=== PATIENT | female | born 1975 | race Caucasian/White ===

== ENCOUNTER 2018-12-23 04:10 | Inpatient (IN) | payer OTHER ==
[2018-12-23] VITALS (13 sets, daily range): BP systolic 106–163; BP diastolic 55–94
[~2018-12-23] VITALS: Ht 154.9 cm; Wt 92.5 kg
[2018-12-23 04:31] LABS: ABSOLUTE BASOPHILS 0.2 thou/uL (0.0-0.2); ABSOLUTE EOSINOPHILS 0.4 thou/uL (0.0-0.7); ABSOLUTE LYMPHOCYTES 7.7 thou/uL (0.8-5.3); ABSOLUTE MONOCYTES 1.9 thou/uL (0.0-1.2); ABSOLUTE NEUTROPHILS 7.8 thou/uL (1.6-8.1); BASOPHILS 1.1 %; EOSINOPHILS 2.5 %; HEMOGLOBIN 14.8 gm/dL (12.0-15.0); LYMPHOCYTES 42.6 %; MCH 30.7 pg (26.0-34.0); MCHC 34.3 g/dL (28.0-37.0); MCV 89.5 fL (80.0-100.0); MONOCYTES 10.5 %; MPV 7.9 fl. (7.2-11.1); NUCLEATED RBCS 0 /100WBC; PLATELET COUNT* 509 thou/uL (150-400); POLYS 43.3 %; RDW-CV 13.1 % (10.5-14.5); WBC 18.1 thou/uL (4.0-11.0)
[2018-12-23] MEDS ORDERED: CELEXA40 MG PO (04:34)
[2018-12-23 04:35] LABS: ANION GAP 8 mmol/L (7-16); BUN 9 mg/dL (7-18); CALCIUM 9.4 mg/dL (8.5-10.1); CHLORIDE 101 mmol/L (98-107); CO2 26 mmol/L (21-32); CREATININE 0.7 mg/dL (0.6-1.3); GLUCOSE 123 mg/dL (70-99); POTASSIUM 3.8 mmol/L (3.5-5.1); SODIUM 135 mmol/L (136-145)
[2018-12-23] MEDS ORDERED: NORCO 7.5-3251 EACH PO (04:35)
[2018-12-23] MEDS ORDERED: LEVOTHYROXINE100 MC1 PO (04:36)
[2018-12-23] MEDS ORDERED: AMLODIPINE BESY10 MG PO (04:36)
[2018-12-23 04:40] LABS: INR 0.9; PROTIME 9.6 Seconds (9.20-11.50)
[2018-12-23 04:46] LABS: ALBUMIN 3.7 g/dL (3.4-5.0); ALKALINE PHOSPHATASE 62 U/L (46-116); LIPASE 152 U/L (73-393); NT-PRO BRAIN NAT PEPTIDE 21 pg/mL (<300); SGOT 14 U/L (15-37); SGPT 26 U/L (30-65); TOTAL BILIRUBIN 0.2 mg/dL (<0.1-1.0); TOTAL PROTEIN 7.1 g/dL (6.4-8.2); TROPONIN-I LEVEL <0.06 ng/mL (<0.06)
--- NOTE | 2018-12-23 08:38 | CARD ---
[address] [address] CARDIAC CATH REPORT Name: JUAN OROZCO Stephen Room: [address] IN .R.#: [id number] Admission: 12/23/18 Attend Phys: Chadd Dunbar MD, F Discharge: Date of : 71 Report #: [id number] THIS REPORT FOR: //name// APPROVED REPORT Study performed: 12/23/2018 04:18:10 Patient Details Patient Status: ED Room #: The patient is a 43 year-old female Event Personnel Virgie Holloway, Kristin Mcclendon RN, Michael Jackson (R) Bettina Molina David College Basketball Coach Procedures Performed Art Access - R femoral artery* Left Heart Cath w/or w/o Coronaries [id number] [facility] Place w/wo Plasty Single RCA [id number] Indication Abnormal ECG, Chest pain Risk Factors Hypercholesterolemia, Hypertension, Tobacco History () Admission/Lab Medications/Medications given during procedure Glycoprotein IllbIlla Inhibitors, Platelet Aff. Inhib., Heparin Unfract. Procedure Narrative The patient was brought emergently to the Cardiac Catheterization Laboratory and was prepped and draped in a sterile manner. The right femoral was infiltrated with 2% Lidocaine subcutaneous anesthesia. A 6fr Ultimum Sheath sheath was inserted into the right femoral artery. Coronary angiography was performed using coronary diagnostic catheters. The right coronary system was accessed and visualized with a Diagnostic catheter. The left coronary system was accessed and visualized with a Diagnostic catheter. The left ventricle was accessed and visualized with a Diagnostic catheter. Left ventricular/Aortic Valve gradient assessed via catheter [place] [address] CARDIAC CATH REPORT Name: OROZCOJUAN R Room: [address] IN [facility]#: [id number] Admission: 12/23/18 Attend Phys: Chadd Dunbar MD, F Discharge: Date of : 71 Report #: [id number] ventriculogram was performed in GOMEZ projection. Pre-demployment femoral angiogram was performed . Closure device was deployed with a 6 Fr Angioseal STS 6Fr. The patient tolerated the procedure well and there were no complications associated with the procedure. There was no hematoma. Intraoperative Conscious Sedation Sedation start time: 450 Case end Time: 523 Fentanyl 50 mcg Versed 2 mg Dose: 1039 mGy Contrast Type and Amount: Visipaque 230 ml Coronary Angiography The patient's coronary anatomy is right dominant. Diagnostic Cath Left Main 0% stenosis LAD 90% mid stenosis Circumflex 0% stenosis Right Coronary 80% mid stenosis Left Ventriculography The left ventricle is normal in size with normal contractility. The left ventricular ejection fraction is estimated to be 60-65%. Left ventricular wall motion abnormalities are not present. There is no mitral insufficiency. Hemodynamics The aortic pressure is 131/63 mmHg with a mean of 96 mmHg. The left ventricular pressure is 171/20 mmHg with a mean of mmHg. The left ventricular end diastolic pressure is 30 mmHg. There was no gradient across the aortic valve upon pullback. Pullback from the left ventricle to the aorta revealed no gradient across the aortic valve. PCI Technique Lesion Anticoagulation was achieved with Heparin. bolus of iv aggrastat given Percutaneous coronary intervention was performed on the mid right coronary artery. The lesion stenosis prior to intervention was 80% with RICCO 3 flow. A 6F 3DRC [place] [address] CARDIAC CATH REPORT Name: JUAN OROZCO Room: [address] IN ..#: [id number] Admission: 12/23/18 Attend Phys: Chadd Dunbar MD, F Discharge: Date of : 71 Report #: [id number] used to engage the rca ostium. A BMW 190cm Interventional Guidewire was used to cross the lesion. BALLOON DILATION A Balloon catheter Trek RX 2.5 X 8 was inserted and inflated up to 12.00atm for 16seconds. Repeat angiography revealed the following post-dilatation results: 50% stenosis with small dissection. STENT DEPLOYMENT A drug-eluting stent Xience Kaye 2.5X15mm was inserted and inflated up to 7.00atm for 12seconds. Repeat angiography revealed the following post-stent deployment results: 0% stenosis. Additional Inflation: 8.00atm for 11seconds. Additional Inflation: 12.00atm for 15seconds. additional inflation: 14.00 trisha for 12 seconds Final angiography reveals 0 % stenosis with RICCO 3 flow. Conclusion 1. 90% stenosis noted of the mid lad and 80% stenosis of the mid rca 2. normal LV function 3. successful placement of a single drug eluting stent in the mid rca Recommendations plan return to lad at a later date for stenting of the lad Medications Administered Ticagrelor <ELECTRONICALLY SIGNED> By: Chadd Dunbar MD, [facility] 12/23/1838 Daberyl Dunbar MD, [facility] /INF
--- NOTE | 2018-12-23 09:01 | EKG ---
[place] [address] ELECTROCARDIOGRAM REPORT Name: JUAN OROZCO Room: [address] ADM IN M.R.#: [id number] Admission: 12/23/18 Attend Phys: Chadd Dunbar MD, F Discharge: Date of : 71 Report #: [id number] THIS REPORT FOR: //name// [facility] ED Test Date: 2018-12-23 Test Time: 04:15:15 Pat Name: JUAN OROZCO Department: Room: [facility] Gender: F Painting Machine Operator: Ila VELIZ : 1975 Requested By: Fatoumata Cross Order Number: [id number] MD: Chadd Dunbar Measurements Intervals [place] Rate: 82 P: 79 HI: 171 QRS: 81 QRSD: 90 T: 7 QT: 398 QTc: 465 Interpretive Statements Sinus rhythm Borderline T abnormalities, anterior leads No previous ECG available for comparison Electronically Signed On 12-23-2018 9:01:29 ICT QUALITY ASSURANCE ENGINEER by Chadd Dunbar [email or web address] <ELECTRONICALLY SIGNED> By: Chadd Dunbar MD, [facility] 12/23/18 0901 0415 0415 Chadd Dunbar MD, FACC /EPI
--- NOTE | 2018-12-23 11:45 | EKG ---
[place] [address] ELECTROCARDIOGRAM REPORT Name: DENISSE OROZCOANNRuth Mitchell Room: [address] ADM IN M.R.#: [id number] Admission: 12/23/18 Attend Phys: Chadd Dunbar MD, F Discharge: Date of : 71 Report #: [id number] THIS REPORT FOR: //name// [facility] Test Date: 2018-12-23 Test Time: 10:37:37 Pat Name: JUAN OROZCO Department: Room: [address] Gender: F Estimator And Drafter: YASMANI : 1975 Requested By: Chadd Dunbar Order Number: [id number] Yenny SANDHU: Casa Boo Measurements Intervals [place] Rate: 79 P: 28 MN: 163 QRS: 78 QRSD: 92 T: 66 QT: 387 QTc: 444 Interpretive Statements Sinus rhythm Borderline T abnormalities, anterior leads Compared to ECG 12/23/2018 04:15:15 No significant changes Electronically Signed On 12-23-2018 11:45:21 TAPE RECORDER REPAIRER by Casa Boo [email or web address] <ELECTRONICALLY SIGNED> By: Casa Boo MD, [facility] 12/23/18 1145 1037 1037 Casa Boo MD, FACC /EPI
--- NOTE | 2018-12-23 14:43 | NUR ---
VSS, ASSUMED CARE OF PT THIS AM, ASSESSMENT PERFOREMD AND CHARTED, FALL PRECAUTIONS IN PLACE AND CALL LIGHT IN REACH, PT IS A&O4, UP AD TITA AND STSTES PAIN IN LOWER BACK, PT IS TRACING SR WITH 1DBLK ON MONITOR, PT GOAL IS TO SIT UP IN CHAIR WALK IN ROOM AND HAVE NO POST CATH COMPLICATIONS, WILL FOLLOW WITH PLAN OF CARE.
[2018-12-24] VITALS: BP 107/59
[2018-12-24 04:00] VITALS: BP 139/49
[2018-12-24 05:03] LABS: HEMATOCRIT 40.4 % (37.0-47.0); HEMOGLOBIN 13.6 gm/dL (12.0-15.0); MCH 30.8 pg (26.0-34.0); MCHC 33.6 g/dL (28.0-37.0); MCV 91.5 fL (80.0-100.0); MPV 7.5 fl. (7.2-11.1); RBC 4.42 mil/uL (4.20-5.00); RDW-CV 13.1 % (10.5-14.5); WBC 11.8 thou/uL (4.0-11.0)
[2018-12-24 05:26] LABS: ANION GAP 1 mmol/L (7-16); BUN 8 mg/dL (7-18); CALCIUM 8.4 mg/dL (8.5-10.1); CHLORIDE 99 mmol/L (98-107); CHOLESTEROL 207 mg/dL (<200); CO2 25 mmol/L (21-32); CREATININE 0.9 mg/dL (0.6-1.3); GLUCOSE 103 mg/dL (70-99); HDL CHOLESTEROL 32 mg/dL (>40); LDL CHOLESTEROL 140 mg/dL (<100); POTASSIUM 3.5 mmol/L (3.5-5.1); SODIUM 125 mmol/L (136-145); TC:HDL 6.5 Ratio (Not establshd); TRIGLYCERIDE 176 mg/dL (<150); VLDL 35 mg/dL (<40)
[2018-12-24 05:31] LABS: SERUM ASSESSMENT CLEAR; TROPONIN-I LEVEL 2.44 ng/mL (<0.06)
--- NOTE | 2018-12-24 06:16 | NUR ---
RECEIVED REPORT FROM RECRUITING ASSOCIATE BELINDA AT 1935. PT ARRIVED TO UNIT AT 1999 VIA WHEELCHAIR. PT AAOX4. SPOUSE AT BEDSIDE. MOUNTED POLICE OFFICER IN PLACE, TRACING SINUS RHYTHM. DENIES CHEST PAIN THIS SHIFT. HOURLY ROUNDING COMPLETED. CALL LIGHT WITHIN REACH. VOICED NO CONCERNS THIS SHIFT.
[2018-12-24 08:00] VITALS: BP 117/56
--- NOTE | 2018-12-24 11:19 | NUR ---
RECEIVED REPORT FROM NIGHT NURSE. ASSUMED CARE OF PT AROUND 0730. PT A&O X4, PLEASANT. VSS. COST AND SALES RECORD SUPERVISOR IN PLACE TRACING SR. DENIES CHEST PAIN. AM ASSESSMENT COMPLETED CHARTED. PT UP TO BEDSIDE CHAIR FOR BREAKFAST. TOLERATING DIET. REPORTED BACK AND NECK PAIN - RECEIVED PRN PAIN PILL WITH RELIEF. NO CONCERNS VOICED AT THIS TIME. FALL PRECAUTIONS IN PLACE. CALL LIGHT IS WITHIN REACH. WILL CONTINUE WITH PLAN OF CARE.
[2018-12-24 11:23] VITALS: BP 140/83
--- NOTE | 2018-12-24 12:10 | EKG ---
[place] [address] ELECTROCARDIOGRAM REPORT Name: JUAN OROZCO Room: [address] ADM IN .R.#: [id number] Admission: 12/23/18 Attend Phys: Chadd Dunbar MD, F Discharge: Date of : 71 Report #: [id number] THIS REPORT FOR: //name// [facility] ED Test Date: 2018-12-23 Test Time: 04:16:29 Pat Name: JUAN OROZCO Department: Room: [facility] Gender: F Metallurgical Laboratory Assistant: Ila VELIZ : 1975 Requested By: Fatoumata Cross Order Number: [id number] Yenny MD: Chadd Dunbar Measurements Intervals [place] Rate: 82 P: 74 [place]: 167 QRS: 78 QRSD: 98 T: 2 QT: 405 QTc: 473 Interpretive Statements Sinus rhythm Borderline T abnormalities, inferior leads Electronically Signed On 12-23-2018 9:01:48 WAREHOUSE PICKER by Chadd Dunbar Compared to ECG 12/23/2018 04:15:15 No significant changes Electronically Signed On 12-24-2018 12:10:25 WAREHOUSE PICKER by Chadd Dunbar [email or web address] <ELECTRONICALLY SIGNED> By: Chadd Dunbar MD, [facility] 12/24/18 1210 0416 0416 Chadd Dunbar MD, [facility] /EPI
--- NOTE | 2018-12-24 12:17 | EKG ---
[place] [address] ELECTROCARDIOGRAM REPORT Name: JUAN OROZCO Room: [address] ADM IN .R.#: [id number] Admission: 12/23/18 Attend Phys: Chadd Dunbar MD, F Discharge: Date of : 71 Report #: [id number] THIS REPORT FOR: //name// [facility] Test Date: 2018-12-24 Test Time: 04:30:14 Pat Name: JUAN OROZCO Department: Room: [facility] Gender: F General Office Worker: [facility] : 1975 Requested By: Chadd Dunbar Order Number: [id number] Yenny MD: Chadd Dunbar Measurements Intervals [place] Rate: 79 P: 28 PA: 160 QRS: 69 QRSD: 89 T: 17 QT: 389 QTc: 447 Interpretive Statements Sinus rhythm Compared to ECG 12/23/2018 10:37:37 T-wave abnormality no longer present Electronically Signed On 12-24-2018 12:17:19 FILLING OPERATOR by Chadd Dunbar [email or web address] <ELECTRONICALLY SIGNED> By: Chadd Dunbar MD, [facility] 12/24/18 1217 0430 0430 Chadd Dunbar MD, FACC /EPI
[2018-12-24 16:00] VITALS: BP 118/74
--- NOTE | 2018-12-24 19:25 | NUR ---
NO CHANGES THIS SHIFT. PAIN MANAGED WITH PO PAIN MEDICATION WITH RELIEF. PT ABLE TO REST THIS AFTERNOON. FAMILY AT BEDSIDE. NPO AFTER MIDNIGHT FOR CATH TOMORROW. NO COMPLAINTS AT THIS TIME. CALL LIGHT IS WITHIN REACH.
[2018-12-24 20:00] VITALS: BP 117/61
[2018-12-24 23:09] LABS: GLYCOHEMOGLOBIN (HGB A1C) 5.7 % (4.8-5.6)
[2018-12-25] VITALS (15 sets, daily range): BP systolic 110–144; BP diastolic 59–87
--- NOTE | 2018-12-25 04:18 | NUR ---
ASSUMED CARE OF PT AFTER REPORT AT 1930. PT A&OX4. VSS. PHYSICAL ASSESSMENT COMPLETED AND CHARTED. PT ON RA WITH 99% O2 SAT. PT TRACING SR ON TELE. PT UP ADLIB TO RESTROOM. POST CATH SITE TO RIGHT GROIN C/D/I. NO HEMATOMA. PT C/O OF RIGHT GROIN & CHRONIC BACK PAIN-PAIN MEDS GIVEN PER JAN. REMINDED PT TO BE NPO POST MIDNIGHT FOR SECOND CARDIAC CATH TODAY. COMMUNICATES UNDERSTANDING. PT RESTED WELL ON BED. CALL LIGHT WITHIN REACH. BED IN LOW POSITION.
[2018-12-25] MEDS ORDERED: LEVOTHYROXINE112 MCG PO (09:25)
--- NOTE | 2018-12-25 14:05 | NUR ---
MET WITH PT TO DISCUSS HOME SITUATION/DC PLANNING. PT LIVES WITH SPOUSE AND CHILDREN. SHE IS INDEPENDENT AND ACTIVE. USES NO EQUIPMENT. PLANS TO RETURN HOME AT TOMORROW. PT'S MOTHER AND PT WANTS TO BE DC'D EARLY POSSIBLE TOMORROW FOR . SUPPORT GIVEN NURSING AWARE
--- NOTE | 2018-12-25 15:00 | EKG ---
[place] [address] ELECTROCARDIOGRAM REPORT Name: JUAN OROZCO Room: [address] ADM IN M.R.#: [id number] Admission: 12/23/18 Attend Phys: Chadd Dunbar MD, F Discharge: Date of : 71 Report #: [id number] THIS REPORT FOR: //name// [facility] Test Date: 2018-12-25 Test Time: 12:47:48 Pat Name: JUAN OROZCO Department: Room: [address] Gender: F Automotive Dismantler: : 1975 Requested By: Chadd Dunbar Order Number: [id number] Yenny MD: Chadd Dunbar Measurements Intervals [place] Rate: 69 P: 29 TN: 173 QRS: 52 QRSD: 82 T: 18 QT: 399 QTc: 428 Interpretive Statements Sinus rhythm Compared to ECG 12/24/2018 04:30:14 No significant changes Electronically Signed On 12-25-2018 15:00:14 DIRECTOR PEOPLESOFT by Chadd Dunbar [email or web address] <ELECTRONICALLY SIGNED> By: Chadd Dunbar MD, [facility] 12/25/18 1500 1247 124 Chadd Dunbar MD, FACC /EPI
--- NOTE | 2018-12-25 15:51 | H ---
[address] [address] HISTORY AND PHYSICAL Name: JUAN OROZCO Room: [address] IN M.R.#: [id number] Admission: 12/23/18 Attend Phys: Chadd Dunbar MD, F Discharge: Date of : 71 Report #: [id number] THIS REPORT FOR: //name// CC: Rashi Aguayogo DATE OF SERVICE: 12/23/2018 HISTORY OF PRESENT ILLNESS: The patient is a 43-year-old white female who I was asked to see in the Emergency Room after she complained of chest pain. The patient has no previous history of heart disease. She notes she was doing well until this morning at approximately 4:00 a.m., she woke up with a pain in her chest. She described a sharp pain that went into her back. Her arms seem to burn, she felt diaphoretic and nauseated. She called EMS and was brought here. ECG showed nonspecific ST and T-wave changes. A code STEMI was activated. She denied the pain being related to food. She has had no recent fever or bleeding. She denied any trauma to her chest. There is no rash. She denies exertional dyspnea. She does note occasional flutter in her heart, but no syncope. PAST MEDICAL HISTORY: She has had previous cholecystectomy, bladder surgery, hypertension. MEDICATIONS: Include amlodipine, Synthroid. She uses inhaler, Celexa, hydrocodone for chronic back pain. ALLERGIES: She has no known drug allergies. FAMILY HISTORY: Her father and mother both had stents. SOCIAL HISTORY: She is . She and her live in [place]. She works as a logistics project manager. Smokes a pack of cigarettes a day. No alcohol use. REVIEW OF SYSTEMS: She has had no history of stroke, peptic ulcer disease, liver disease, kidney disease, cancer, psychiatric illness, chronic skin condition. PHYSICAL EXAMINATION: GENERAL: Revealed a young white female lying in bed. She appeared in no distress. VITAL SIGNS: She had a blood pressure of 160/90, pulse 90. HEENT: She is anicteric, conjunctiva pink. Mucous membranes moist. NECK: Veins difficult to assess due to obesity. No carotid bruits heard. CHEST: Clear to auscultation. HEART: [place] [address] HISTORY AND PHYSICAL Name: JUAN OROZCO Room: [address]#: [id number] Admission: 12/23/18 Attend Phys: Chadd Dunbar MD, F Discharge: Date of : 71 Report #: [id number] ABDOMEN: Obese, soft, nontender. EXTREMITIES: Had no edema. Dorsalis pedis pulse 2+ bilaterally. SKIN: Warm, dry. NEUROLOGIC: Nonfocal. DIAGNOSTIC DATA: ECG, sinus rhythm, nonspecific ST and T-wave change. Of note, she had an ECG done by Paramedics, did appear to show ST segment elevation in lead 3. LABORATORY DATA: Pending except white blood cell count is 14.1, hemoglobin 14.8, hematocrit 43. IMPRESSION AND RECOMMENDATIONS: 1. Possible acute coronary syndrome. Recommend urgent cardiac catheterization. 2. Hypertension. The patient is on amlodipine. 3. Chronic back pain. 4. Tobacco abuse. <ELECTRONICALLY SIGNED> By: Chadd Dunbar MD, FACC 12/25/18 1551 0440 0513Daberyl Dunbar MD, FACC /nt
--- NOTE | 2018-12-25 17:46 | CARD ---
[address] [address] CARDIAC CATH REPORT Name: JUAN OROZCO Stephen Room: [address] IN .R.#: [id number] Admission: 12/23/18 Attend Phys: Chadd Dunbar MD, F Discharge: Date of : 71 Report #: [id number] THIS REPORT FOR: //name// ADDENDUM APPROVED REPORT Study performed: 12/25/2018 09:48:09 Patient Details Patient Status: In-Patient Room #: The patient is a 43 year-old female Event Personnel Chadd Dunbar Biophysics Teacher, Jocy Castillo RN RN, Brendon Pike, Michael Jackson ([employer] Brittany RN disc pad grinding machine feeder Performed cath pci Indication Chest pain Risk Factors Arterial Hypertension, Hypercholesterolemia, Tobacco History () Previous Procedures/Diagnoses Previous PCI Admission/Lab Medications/Medications given during procedure Heparin Unfract. Procedure Narrative The patient was brought electively to the Cardiac Catheterization Laboratory and was prepped and draped in a sterile manner. The right wrist was infiltrated with 1% Lidocaine subcutaneous anesthesia. A Slender Glidesheath sheath was inserted into the right radial artery. Coronary angiography was performed using coronary diagnostic catheters. The right coronary system was accessed and visualized with a JR4 5fr catheter. The left coronary system was accessed and visualized with a 6FR XB 3.0 100CM catheter. The left ventricle was accessed and visualized with a PJR4 5fr/PRESSURES [place] [address] CARDIAC CATH REPORT Name: JUAN OROZCO Room: [address] IN .R.#: [id number] Admission: 12/23/18 Attend Phys: Chadd Dunbar MD, F Discharge: Date of : 71 Report #: [id number] ventricular/Aortic Valve gradient assessed via catheter pullback. Closure device was deployed with a 6 Fr Vasc-Band Reg 24cm. The patient tolerated the procedure well and there were no complications associated with the procedure. There was no hematoma. Intraoperative Conscious Sedation Sedation start time: 1056 Case end Time: 1126 Fentanyl 25 mcg Versed 2 mg Fluoro Time: 5.5 minutes Dose: DAP 59501 cGycm2 930 mGy Contrast Type and Amount: Omnipaque 150 ml Coronary Angiography The patient's coronary anatomy is right dominant. Diagnostic Cath Left Main 0% stenosis LAD 90% mid stenosis, 60% distal stenosis Circumflex 0% stenosis Right Coronary stent in mid rca with 0% stenosis Left Ventriculography Left Ventriculography was not performed. Hemodynamics The aortic pressure is 111/65 mmHg with a mean of 84 mmHg. The left ventricular pressure is 111/20 mmHg with a mean of mmHg. The left ventricular end diastolic pressure is 22 mmHg. There was no gradient across the aortic valve upon pullback. Pullback from the left ventricle to the aorta revealed no gradient across the aortic valve. PCI Technique Lesion Anticoagulation was achieved with Heparin. Patient was preloaded with Brillinta. Percutaneous coronary intervention was performed on the mid left anterior descending artery segment. The lesion stenosis prior to intervention was 90% with RICCO 3 flow. A 6FR XB 3.0 100CM Guide Catheter was used to engage the lm ostium. A IG: BMW 190cm Interventional Guidewire was used to cross the [place] [address] CARDIAC CATH REPORT Name: JUAN OROZCO Room: [address] IN ..#: [id number] Admission: 12/23/18 Attend Phys: Chadd Dunbar MD, F Discharge: Date of : 71 Report #: [id number] A Balloon catheter Mini Trek RX 2.0 X 8 was inserted and inflated up to 8.00atm for 13seconds. Repeat angiography revealed the following post-dilatation results: 50% stenosis. Additional Inflation: 10.00atm for 13seconds. STENT DEPLOYMENT A drug-eluting stent Xience Kaye 2.47Y81ve was inserted and inflated up to 8.00atm for 8seconds. Repeat angiography revealed the following post-stent deployment results: 0% stenosis. Additional Inflation: 8.00atm for 7seconds. Additional Inflation: 8.00atm for 9seconds. 12 RACHEAL FOR 16 SEC 15 RACHEAL FOR 17 SEC 16 RACHEAL FOR 14 SEC Final angiography reveals 0 % stenosis with RICCO 3 flow. Conclusion 1. 90% stenosis in mid lad 2. successful placement of a drug eluting stent in the mid lad 3. no restenosis of stent in the mid rca Recommendations Smoking Cessation Cardiac Rehabilitation Referral Aggressive Medical Therapy Medications Administered Ticagrelor <ELECTRONICALLY SIGNED> By: Chadd Dunbar MD, [facility] 12/25/18 1745 44 1745Daberyl Dunbar MD, [facility] /INF
[2018-12-26] VITALS: BP 123/85
[2018-12-26 04:00] VITALS: BP 120/65
--- NOTE | 2018-12-26 05:03 | NUR ---
ASSUMED CARE OF PT AFTER REPORT AT 1930. PT A&OX4. VSS. PHYSICAL ASSESSMENT COMPLETED AND CHARTED. PT ON RA WITH 96% O2 SAT. PT TRACING SR ON TELE. PT UP ADLIB TO RESTROOM. PT C/O OF CHRONIC BACK PAIN-PAIN MEDS GIVEN PER JAN. POST CATH SITE TO RIGHT WRIST & RIGHT GROIN C/D/I. NO BLEEDING OR HEMATOMA NOTED. PT RESTED WELL ON BED. CALL LIGHT WITHIN REACH. BED IN LOW POSITION.
[2018-12-26 05:58] LABS: HEMATOCRIT 38.3 % (37.0-47.0); MCH 31.1 pg (26.0-34.0); MCV 91.4 fL (80.0-100.0); RBC 4.19 mil/uL (4.20-5.00); RDW-CV 12.8 % (10.5-14.5); WBC 12.1 thou/uL (4.0-11.0)
[2018-12-26 06:30] LABS: CALCIUM 8.9 mg/dL (8.5-10.1); CREATININE 0.9 mg/dL (0.6-1.3); POTASSIUM 3.9 mmol/L (3.5-5.1)
[2018-12-26 06:33] LABS: TROPONIN-I LEVEL 1.32 ng/mL (<0.06)
--- NOTE | 2018-12-26 10:43 | NUR ---
ORDERS NOTED FOR DC HOME. PT DENIES NEEDS
[2018-12-26] MEDS ORDERED: CHILDREN'S ASPI81 M1 PO (11:11)
[2018-12-26] MEDS ORDERED: ATORVASTATIN CA40 MG PO (11:12)
[2018-12-26] MEDS ORDERED: METOPROLOL TART25 MG PO (11:14)
[2018-12-26] MEDS ORDERED: BRILINTA90 MG PO (11:16)
[2018-12-26] MEDS ORDERED: TYLENOL325 MG PO (11:17)
[2018-12-26] MEDS ORDERED: NITROGLYCERIN0.4 MG SUBLING (11:18)
--- NOTE | 2018-12-26 15:01 | EKG ---
[place] [address] ELECTROCARDIOGRAM REPORT Name: JUAN OROZCO Room: [address] DIS IN M.R.#: [id number] Admission: 12/23/18 Attend Phys: Chadd Dunbar MD, F Discharge: 12/26/18 Date of : 71 Report #: [id number] THIS REPORT FOR: //name// [facility] Test Date: 2018-12-26 Test Time: 07:54:04 Pat Name: JUAN OROZCO Department: Room: [address] Gender: F Complaint Operator: : 1975 Requested By: Chadd Dunbar Order Number: [id number] Yenny MD: Chadd Dunbar Measurements Intervals [place] Rate: 73 P: 43 [place]: 154 QRS: 61 QRSD: 87 T: 26 QT: 389 QTc: 429 Interpretive Statements Sinus rhythm Compared to ECG 12/25/2018 12:47:48 No significant changes Electronically Signed On 12-26-2018 15:00:42 STRAIGHT LINE PRESS SETTER by Chadd Dunbar [email or web address] <ELECTRONICALLY SIGNED> By: Chadd Dunbar MD, [facility] 12/26/18 1500 0754 0754 Chadd Dunbar MD, FACC /EPI
--- NOTE | 2018-12-26 16:55 | D ---
[address] [address] DISCHARGE SUMMARY Name: JUAN OROZCO Room: [address] M.R.#: [id number] Admission: 12/23/18 Attend Phys: Chadd Dunbar MD, F Discharge: 12/26/18 Date of : 71 Report #: [id number] THIS REPORT FOR: //name// CC: Rashi Adams DATE OF SERVICE: 12/26/2018 DISCHARGE DIAGNOSES: 1. Non-ST segment elevation myocardial infarction. 2. Coronary artery disease. 3. Hypertension. 4. Hyperlipidemia. 5. Tobacco abuse. CONSULTANTS: None. PROCEDURES: 1. Emergent left heart catheterization with placement of a drug-eluting stent in the right coronary artery via the femoral approach. 2. Elective cardiac catheterization with placement of a drug-eluting stent in the LAD via the right radial artery. HISTORY OF PRESENT ILLNESS: The patient is a 43-year-old white female who came to the Emergency Room complaining of chest pain. The patient was doing well until the morning of admission at 4:00 a.m. she woke up with a pain in her chest, went into her back, her arms, seemed to burn, she felt diaphoretic and nauseated. She called paramedics. ECG showed ST segment elevation apparently in lead 3. A code STEMI was activated. I was asked to see her on an emergent basis. On arrival to the Emergency Room, her pain had improved. She denied any recent shortness of breath, bleeding, trauma to her chest or rash. She notes occasional flutter in her chest, but no syncope. PAST MEDICAL HISTORY: She has had previous cholecystectomy, bladder surgery. She has a history of hypertension and hyperlipidemia. MEDICATIONS: Included amlodipine, Lipitor, Synthroid, an inhaler, Celexa, hydrocodone for chronic back pain. ALLERGIES: She has no known drug allergies. SOCIAL HISTORY: She is . She lives in [place] with her . She works as a project account manager. Smokes a pack of cigarettes a day. PHYSICAL EXAMINATION: [place] [address] DISCHARGE SUMMARY Name: JUAN OROZCO Room: [address]#: [id number] Admission: 12/23/18 Attend Phys: Chadd Dunbar MD, F Discharge: 12/26/18 Date of : 71 Report #: [id number] GENERAL: Revealed a young female. VITAL SIGNS: Blood pressure 160/90, pulse is 90. CHEST: Clear to auscultation. CARDIAC: Regular rate and rhythm. ABDOMEN: Soft. EXTREMITIES: No edema. SKIN: Warm and dry. NEUROLOGIC: Nonfocal. LABORATORY DATA: Her ECG done by paramedics did show ST segment elevation in lead 3. However, on arrival to the Emergency Room at [facility], ECG showed only nonspecific ST and T-wave changes. Lab work included hemoglobin of 14.8. HOSPITAL COURSE: Because of the transient ST segment elevation, the patient was taken urgently to cardiac catheterization lab and I performed cardiac catheterization from the right femoral artery. Results showed ejection fraction of 60%. There was an 80% narrowing of the mid right coronary artery that was somewhat eccentric. There was also a 90% discrete stenosis in mid LAD. She was given heparin and Aggrastat. I then placed a single drug-eluting stent in the mid right coronary artery since this is where the transient ST segment elevation was noted. Fortunately, she had no further chest pain, arrhythmias or heart failure. She had no significant hematoma in the groin after an Angio-Seal was placed. She began to ambulate with cardiac rehabilitation. Because of the severe stenosis in mid LAD, I took her back to the cardiac catheterization lab on 12/25/2018. I performed repeat cardiac catheterization from the right radial artery. There was no significant restenosis of the stent in the right coronary artery. I then placed a single drug-eluting stent in the mid LAD. She tolerated this well. The patient was placed on Brilinta. Workup during her hospitalization included a chest x-ray that showed normal heart size and clear lung yoder. Additional lab work included BUN 10, creatinine 0.9, fasting blood sugar 104. Liver function studies were normal. Her peak troponin was 2.44. Cholesterol was 207, triglyceride 176, HDL 32, LDL 140. TSH was 5.4. Glycosylated hemoglobin was 5.7. A followup hemoglobin was 13 and there was no drop in platelet count. The patient was discharged on her home medication that included amlodipine 10 mg a day for hypertension, Celexa 40 mg a day, hydrocodone for chronic back pain, Synthroid for hypothyroidism. She was placed on aspirin 81 mg a day, Brilinta 90 mg twice a day. She was given nitroglycerin to take as needed for chest pain. Because of her coronary artery disease and non-STEMI she was started on metoprolol 25 mg twice a day. She was discharged to return to care of Dr. Coon for routine medical care. She is scheduled to see my nurse practitioner in 1 week. I plan on seeing her in Cardiology Clinic in 2 months. She is felt to have a good prognosis from a cardiac standpoint. I have recommended she not return to work for a week. I did recommend she enroll in cardiac rehabilitation at [facility]. At the time of discharge, there was no significant hematoma in [address] [address] DISCHARGE SUMMARY Name: JUAN OROZCO Room: [address] M.R.#: [id number] Admission: 12/23/18 Attend Phys: Chadd Dunbar MD, F Discharge: 12/26/18 Date of : 71 Report #: [id number] the right groin or right wrist. She was given a prescription for the Brilinta to take 90 mg every 12 hours for at least one year following placement of the stent. <ELECTRONICALLY SIGNED> By: Chadd Dunbar MD, FAC 12/26/18 1655 [id number] [id number] Rashard Dunbar MD, FACC /nt
--- NOTE | 2018-12-26 17:47 | NUR ---
ORDER RECEIVED TO DISCHARGE [facility] HOME TO SELF CARE. MED REC, MEDICATION EDUCATION, STROKE EDUCATION, AND NEED FOR FOLLOW UP APPOINTMETNS COVERED AND STATED UNDERSTOOD BY PATIENT. TELEMRTY AND IV DC'D. HOURLY ROUNDING COMPLETD FOR PATIENT SAFETY. DISCHRAGE TOME OF 11:45. PATINET ESCORTED BY HOSITAL STAFF TO AWAITING CAR WITH SPOUSE PRESENT.
== END 2018-12-26 11:35 | disposition home or self-care (01) | DRG 246 ==
LOC: M.ERS 04:10 → M.2W 04:33 → M.TBA-ER 04:33 → M.ICU 04:33 → M.TBA-CV 05:49 → M.ICU 06:07 → M.2W 20:24
PROVIDERS: Internal Medicine; Personal Emergency Response Attendant; ADMIT Internal Medicine Cardiovascular Disease
DX: I21.4 Non-ST elevation (NSTEMI) myocardial infarction (principal); I50.31 Acute diastolic (congestive) heart failure; I11.0 Hypertensive heart disease with heart failure; E11.9 Type 2 diabetes mellitus without complications; I25.10 Atherosclerotic heart disease of native coronary artery without angina pectoris; E78.5 Hyperlipidemia, unspecified; F17.210 Nicotine dependence, cigarettes, uncomplicated; F41.1 Generalized anxiety disorder; F32.9 Major depressive disorder, single episode, unspecified; M54.9 Dorsalgia, unspecified; G89.29 Other chronic pain; E03.9 Hypothyroidism, unspecified; E66.9 Obesity, unspecified; Z68.38 Body mass index [BMI] 38.0-38.9, adult; Z71.6 Tobacco abuse counseling; Z90.49 Acquired absence of other specified parts of digestive tract; Z79.899 Other long term (current) drug therapy; Z82.49 Family history of ischemic heart disease and other diseases of the circulatory system

== ENCOUNTER → 2019-01-24 | Outpatient (CLI) | payer OTHER ==
[~2019-01-24] MED LIST: AMLODIPINE BESY10 MG PO; ATORVASTATIN CA40 MG PO; BRILINTA90 MG PO; CELEXA40 MG PO; CHILDREN'S ASPI81 M1 PO; LEVOTHYROXINE100 MC1 PO; LEVOTHYROXINE112 MCG PO; METOPROLOL TART25 MG PO; NITROGLYCERIN0.4 MG SUBLING; NORCO 7.5-3251 EACH PO; TYLENOL325 MG PO
--- NOTE | 2019-01-24 16:36 | 2DMMODE ---
[place] [address] 2 D/M-MODE ECHOCARDIOGRAM Name: JUAN OROZCO Room: [facility]#: [id number] Admission: 01/24/19 Attend Phys: Padmini Guevara Discharge: Date of : 71 Date of Service: 01/24/19 1636 Report #: [id number] THIS REPORT FOR: //name// APPROVED REPORT Study performed: 01/24/2019 14:32:04 EXAM: Comprehensive 2D, Doppler, and color-flow Echocardiogram Patient Location: Out-Patient BSA: 1.89 HR: 78 bpm BP: 118/58 mmHg Other Information Study Quality: Good Indications CAD 2D Dimensions IVSd: 10.31 (7-11mm) LVOT Diam: 20.30 (18-24mm) LVDd: 46.79 mm PWd: 9.68 (7-11mm) Ascending Ao: 25.29 (22-36mm) LVDs: 34.15 (25-40mm) Aortic Root: 21.21 mm Volumes Left Atrial Volume (Systole) LA ESV Index: 19.00 mL/m2 Aortic Valve AoV Peak Shawn.: 1.48 m/s AO Peak Gr.: 8.75 mmHg LVOT Max P.54 mmHg AO Mean Gr.: 4.86 mmHg LVOT Mean P.67 mmHg LVOT Max V: 0.94 m/s AO V2 VTI: 29.37 cm LVOT Mean V: 0.59 m/s KAROLINE (VTI): 2.11 cm2 LVOT V1 VTI: 19.14 cm Mitral Valve E/A Ratio: 1.15 MV Decel. Time: 229.99 ms MV E Max Shawn.: 1.19 m/s MV PHT: 66.70 ms MVA (PHT): 3.30 [place]2 [place] [address] 2 D/M-MODE ECHOCARDIOGRAM Name: JUAN OROZCO Room: [facility]#: [id number] Admission: 01/24/19 Attend Phys: Padmini Guevara Discharge: Date of : 71 Date of Service: 01/24/19 1636 Report #: [id number] TDI E/Lateral E': 9.92 E/Medial E': 13.22 Medial E' Shawn.: 0.09 m/s Lateral E' Shawn.: 0.12 m/s Pulmonary Valve PV Peak Shawn.: 0.81 m/s PV Peak Gr.: 2.62 mmHg Tricuspid Valve RAP Estimate: 5.00 mmHg TR Peak Gr.: 17.47 mmHg RVSP: 22.47 mmHg PA Pressure: 22.47 mmHg Left Ventricle The left ventricle is normal size. There is normal LV segmental wall motion. There is normal left ventricular wall thickness. Left ventricular systolic function is normal. The left ventricular ejection fraction is within the normal range. LVEF is 55-60%. The left ventricular diastolic function is normal. Right Ventricle The right ventricle is normal size. The right ventricular systolic function is normal. Atria The left atrium size is normal. The right atrium size is normal. Aortic Valve The aortic valve is normal in structure. No aortic regurgitation is present. There is no aortic valvular stenosis. Mitral Valve The mitral valve is normal in structure. Mild mitral regurgitation. No evidence of mitral valve stenosis. Tricuspid Valve The tricuspid valve is normal in structure. Trace to mild tricuspid regurgitation. Pulmonic Valve The pulmonary valve is normal in structure. There is no pulmonic valvular regurgitation[place] [address] 2 D/M-MODE ECHOCARDIOGRAM Name: JUAN OROZCO Room: [facility]#: [id number] Admission: 01/24/19 Attend Phys: Padmini Guevara Discharge: Date of : 71 Date of Service: 01/24/19 1636 Report #: [id number] The aortic root is normal in size. IVC is normal in size and collapses >50% with inspiration. Pericardium There is no pericardial effusion. <Conclusion> Left ventricular systolic function is normal. The left ventricular ejection fraction is within the normal range. Mild mitral regurgitation. <ELECTRONICALLY SIGNED> By: Chadd Dunbar MD, FACC 01/24/19 1636 [id number] Chadd Dunbar MD, FACC /INF
== END ==
LOC: M.CRD 14:00
DX: I34.0 Nonrheumatic mitral (valve) insufficiency (principal); I25.10 Atherosclerotic heart disease of native coronary artery without angina pectoris

== ENCOUNTER → 2019-10-22 | Outpatient (CLI) | payer OTHER ==
--- NOTE | 2019-10-22 16:18 | EXE ---
[place] [address] STRESS ECHOCARDIOGRAM Name: OROZCOJUAN R Room: [facility]#: [id number] Admission: 10/22/19 Attend Phys: Chadd Dunbar MD Discharge: Date of : 71 Date of Service: 10/22/19 1617 Report #: [id number] THIS REPORT FOR: //name// APPROVED REPORT Study performed: 10/22/2019 15:10:40 Exam: Stress Echocardiogram Indication: Chest pain Patient Location: Out-Patient Stress Nurse: Arabella Dewitt RN Supervising Physician: Chadd Dunbar MD Ht: 5 ft 1 in HR: 78 bpm BP: 113/63 mmHg Medical History Cardiac Risk Factors: HTN, Hyperlipidemia, Tobacco History (Current/Recent), FHX of CAD Procedure The patient underwent an Exercise Stress Test using the Teo Protocol. Blood pressure, heart rate, and EKG were monitored. An Echocardiogram was performed by compounding pharmacy technician in four stages in quad fashion. At peak stress, four selected images were obtained and placed side by side with resting images for comparison. Stress Test Details Stress Test: Exercise stress testing was performed using a Teo protocol. HR Resting HR: 78 bpm Max Heart Rate (APMHR): 174 bpm Max HR Achieved: 160 bpm Target HR (85% APMHR): 147 bpm % of APMHR: 91 Recovery HR: 98 bpm HR response to stress: Normal HR response to stress BP Resting BP: 113/63 mmHg Max BP: 217/97 mmHg Recovery BP: 114/61 mmHg BP response to stress: Normal blood pressure response to stress. ECG Resting ECG: [place] [address] STRESS ECHOCARDIOGRAM Name: JUAN OROZCO Room: [facility]#: [id number] Admission: 10/22/19 Attend Phys: Chadd Dunbar MD Discharge: Date of : 71 Date of Service: 10/22/19 1617 Report #: [id number] Stress ECG: Sinus Rhythm, nonspecific ST-T abnormalities ST Change: Upsloping ST depression Maximum ST Deviation: 0.5 mm Arrhythmia: None Recovery ECG: Sinus Rhythm Recovery ST Change: Normal Recovery ST Deviation: 0 mm Recovery Arrhythmia: VPC Clinical Reason for Termination: Completed protocol Exercise duration: 5 min 59 sec Highest Stage Achieved: Stage 2: 2.5 mph at 12% grade. Exercise capacity: 7.05 METs Pre-Stress Echo The resting Echocardiogram showed normal left ventricular contractility with an estimated Ejection Fraction of about 60-65%. Post-Stress Echo The stress Echocardiogram showed normal left ventricular contractility with an estimated Ejection Fraction of about >70%. Compared to rest, there were no stress-induced wall motion abnormalities. Conclusion Clinical Response: Non-ischemic Exercise Capacity: Average Stress ECG Response: Indeterminant Stress Echo Images: Non-ischemic low risk stress echo for predicting future cardiac events Other Information Study Quality: Good <Conclusion> low risk stress echo for predicting future cardiac events <ELECTRONICALLY SIGNED> By: Chadd Dunbar MD, FACC 10/22/191616 16 16 Chadd Dunbar MD, FACC /INF
== END ==
LOC: M.CRD 14:34
DX: I25.10 Atherosclerotic heart disease of native coronary artery without angina pectoris (principal); I21.4 Non-ST elevation (NSTEMI) myocardial infarction